=== PATIENT | male | born 1940 | race Caucasian/White ===

== ENCOUNTER → 2017-04-01 | Outpatient (CLI) | payer MEDICARE, OTHER ==
[~2017-04-01] MED LIST: ASPI325 PO; CALCAVITDA PO; HYDR1TAB94 PO; IBUP400 PO; LISHYD1012 PO; MULVITMIND PO; OMEPRAZOLE MAGN20 MG PO; SIMV10 PO
== END | disposition home or self-care (01) ==
LOC: PLD 11:13 → LAB SHORT 11:13
DX: C44.722 Squamous cell carcinoma of skin of right lower limb, including hip (principal)
CPT/HCPCS: 88305

== ENCOUNTER → 2017-04-26 | Outpatient (CLI) | payer MEDICARE, OTHER | LOC: PLD 13:30 → LAB SHORT 13:30 | DX: C44.722 Squamous cell carcinoma of skin of right lower limb, including hip (principal) | CPT/HCPCS: 88305 ==

== ENCOUNTER → 2018-02-22 | Outpatient (CLI) | payer MEDICARE, OTHER | END | disposition home or self-care (01) | LOC: PLD 10:13 → LAB SHORT 10:13 | DX: C44.320 Squamous cell carcinoma of skin of unspecified parts of face (principal) | CPT/HCPCS: 88305 ==

== ENCOUNTER → 2018-03-29 | Outpatient (CLI) | payer MEDICARE, OTHER | END | disposition home or self-care (01) | LOC: PLD 08:54 → LAB SHORT 08:54 | DX: C44.329 Squamous cell carcinoma of skin of other parts of face (principal) | CPT/HCPCS: 88305 ==

== ENCOUNTER → 2018-04-13 | Outpatient (CLI) | payer MEDICARE, OTHER | END | disposition home or self-care (01) | LOC: LAB SHORT 08:36 → PLD 08:36 | DX: C44.320 Squamous cell carcinoma of skin of unspecified parts of face (principal) | CPT/HCPCS: 88305 ==

== ENCOUNTER → 2018-08-23 | Outpatient (CLI) | payer MEDICARE, OTHER | END | disposition home or self-care (01) | LOC: PLD 15:12 → LAB SHORT 15:12 | DX: D48.5 Neoplasm of uncertain behavior of skin (principal) | CPT/HCPCS: 88305 ==

== ENCOUNTER → 2018-10-18 | Outpatient (CLI) | payer MEDICARE, OTHER | END | disposition home or self-care (01) | LOC: LAB SHORT 07:42 → PLD 07:42 | DX: C44.222 Squamous cell carcinoma of skin of right ear and external auricular canal (principal) | CPT/HCPCS: 88305 ==

== ENCOUNTER → 2018-10-27 | Outpatient (CLI) | payer MEDICARE, OTHER | END | disposition home or self-care (01) | LOC: LAB SHORT 09:17 → PLD 09:17 | DX: C44.222 Squamous cell carcinoma of skin of right ear and external auricular canal (principal) | CPT/HCPCS: 88305 ==

== ENCOUNTER → 2019-03-21 | Outpatient (CLI) | payer MEDICARE, OTHER | END | disposition home or self-care (01) | LOC: PLD 08:39 → LAB SHORT 08:39 | DX: D04.61 Carcinoma in situ of skin of right upper limb, including shoulder (principal) | CPT/HCPCS: 88305 ==

== ENCOUNTER → 2019-10-11 | Outpatient (CLI) | payer MEDICARE, OTHER | END | disposition home or self-care (01) | LOC: PLD 15:00 → LAB SHORT 15:00 | DX: L57.0 Actinic keratosis (principal) | CPT/HCPCS: 88305 ==

== ENCOUNTER → 2020-05-01 | Outpatient (CLI) | payer MEDICARE, OTHER | END | disposition home or self-care (01) | LOC: PLD 15:19 → LAB SHORT 15:19 | DX: C44.41 Basal cell carcinoma of skin of scalp and neck (principal) | CPT/HCPCS: 88305 ==

== ENCOUNTER → 2021-06-19 | Outpatient (CLI) | payer MEDICARE, OTHER | END | disposition home or self-care (01) | LOC: PLD 07:18 → LAB SHORT 07:18 | DX: C44.719 Basal cell carcinoma of skin of left lower limb, including hip (principal) | CPT/HCPCS: 88305 ==

== ENCOUNTER → 2021-12-03 | Outpatient (CLI) | payer MEDICARE, OTHER | END | disposition home or self-care (01) | LOC: LAB SHORT 15:12 → PLD 15:12 | DX: C44.319 Basal cell carcinoma of skin of other parts of face (principal) | CPT/HCPCS: 88305 ==

== ENCOUNTER → 2022-09-23 | Outpatient (CLI) | payer MEDICARE, OTHER | LOC: LAB 15:45 → PLD 15:45 → LAB SHORT 15:45 | DX: D48.5 Neoplasm of uncertain behavior of skin (principal) | CPT/HCPCS: 88305 ==

== ENCOUNTER 2023-03-23 15:52 | Observation (INO) | payer MEDICARE, OTHER ==
[~2023-03-23] VITALS: Ht 177.8 cm; Wt 63.0 kg
[~2023-03-23 15:52] MED LIST changes: +Hair, Skin & N1 EACH PO; -LISHYD1012 PO; +Lisinopril-Hct1 EAC4 PO; -MULVITMIND PO; -SIMV10 PO; +Zocor20 MG PO
[2023-03-23] MEDS ORDERED: DONE5 PO (17:38)
[2023-03-23] MEDS ORDERED: Vitamin D1000 UNI1 PO (17:39)
[2023-03-23] MEDS ORDERED: OLANZapine ODT 5 MG Tab PO ONE (22:55)
[2023-03-24] MEDS ORDERED: Ondansetron HCl 2 MG / ML 2ML Vial IV PRN (00:35)
[2023-03-24] MEDS ORDERED: FLU VACC QS2023-24(6MOS UP)/PF 60 MCG/0.5 ML SYRINGE IM ONE (00:35)
[2023-03-24] MEDS ORDERED: Acetaminophen 325 MG TABLET PO PRN (00:35)
[2023-03-24] MEDS ORDERED: Melatonin 3 MG Tab PO ONE (03:30)
[2023-03-24] MEDS ORDERED: QUEtiapine Fumarate 25 MG Tab PO ONE (03:30)
[2023-03-24 05:47] LABS: Albumin, Blood 3.3 g/dL (3.4-5.0); BASOPHILS ABSOLUTE AUTO 0.07 K/mm3 (0.00-0.23); BASOPHILS PERCENT AUTO 1 % (0-2); Bilirubin, Total 0.8 mg/dL (0.1-1.0); Bun/Creatinine Ratio 18.6 (12.0-20.0); Calcium, Blood 8.9 mg/dL (8.5-10.1); Creatinine, Blood 0.75 mg/dL (0.60-1.20); EOSINOPHILS ABSOLUTE AUTO 0.26 K/mm3 (0.00-0.68); EOSINOPHILS PERCENT AUTO 5 % (0-6); Globulin, Blood 3.3 g/dL (2.2-4.0); Hematocrit 42.2 % (37.0-53.0); Hemoglobin 14.7 g/dL (13.5-17.5); IMMATURE GRAN ABSOLUTE AUTO 0.04 K/mm3 (0.00-0.10); IMMATURE GRAN PERCENT AUTO 1 % (0-1); LYMPHOCYTES ABSOLUTE AUTO 0.98 K/mm3 (0.84-5.20); LYMPHOCYTES PERCENT AUTO 17 % (21-46); MONOCYTES ABSOLUTE AUTO 0.74 K/mm3 (0.16-1.47); MONOCYTES PERCENT AUTO 13 % (4-13); Mean Corpuscular HGB 31.3 pg (26.0-34.0); Mean Corpuscular HGB Conc 34.8 g/dL (31.5-36.5); Mean Corpuscular Volume 90 fL (80-100); Mean Platelet Volume 11.6 fL (9.1-12.4); NEUTROPHILS ABSOLUTE AUTO 3.65 K/mm3 (1.96-9.15); NEUTROPHILS PERCENT AUTO 64 % (41-73); Platelet Count 166 K/mm3 (150-400); Potassium, Blood 3.7 mmol/L (3.5-5.5); RDW Coefficient Variation 14.2 % (11.7-14.2); RDW Standard Deviation 46.8 fL (35.1-46.3); Total Protein, Blood 6.6 g/dL (6.4-8.2); White Blood Cell Count 5.74 K/mm3 (4.00-11.30)
[2023-03-24 05:48] LABS: Source, Urine Clean Catch
[2023-03-24 05:55] LABS: Bilirubin, Urine Neg (Neg); Blood, Urine Neg (Neg); Glucose Qualitative, Urine Neg (Neg); Ketones, Urine Neg (Neg); Leukocyte Esterase, Urine Neg (Neg); Nitrite, Urine Neg (Neg); Protein, Urine Neg (Neg); Specific Gravity, Urine 1.005 (1.003-1.022); Urobilinogen, Urine NORM (Normal)
[2023-03-24 06:04] LABS: Appearance, Urine Clear (Clear); Color, Urine Yellow (P-Yellow)
[2023-03-24] MEDS ORDERED: Heparin Sodium,Porcine 5,000 UNIT/0.5 ML SDV SC SCH (09:00)
[2023-03-24] MEDS ORDERED: HYDCHL25 PO (17:33)
[2023-03-24 19:58] VITALS: BP 124/80
[2023-03-24] MEDS ORDERED: QUEtiapine Fumarate 25 MG Tab PO SCH (21:00)
[2023-03-24] MEDS ORDERED: Melatonin 3 MG Tab PO SCH (21:00)
[2023-03-25 02:50] VITALS: BP 126/87
--- NOTE | 2023-03-25 03:50 | NUR ---
SHIFT SUMMERY. START OF SHIFT PT SEEMING SOME WHAT COMBATTIVE. PT REACHING OVER AND PULLING ON STRAPS FOR GÓMEZ VEST. STRAPS AJUSTED. A WHILE LATTER PT ABLE TO PULL OFF VEST. PT NOT FALLOWING DIRECTIONS AND NOT STEADY ON FEET. SOFT WRIST RESTRAINS APPLYED. PT TOOK HIS MEDS. PT REFUSED WANTING ANY SNACKS. AND SOON FELL ASLEEP IN BED , BED ALARM ALSO ON. PT HAS GOOD CIRCULATIION TO WRISTS AND ARMS. PT SEEMS COMFORTABLE.
[2023-03-25 07:46] VITALS: BP 141/87
[2023-03-25] MEDS ORDERED: ASPI81CH PO (08:27)
[2023-03-25] MEDS ORDERED: Atorvastatin 40 MG Tab PO SCH (09:00)
[2023-03-25] MEDS ORDERED: Aspirin 81 MG Chew PO SCH (09:00)
--- NOTE | 2023-03-25 11:06 | NUR ---
PATIENT D/C'D TO HOME WITH . DC INSTRUCTIONS AND EDUCATION DISCUSSED WITH PATIENT AND COPY PROVIDED. RX MEDICATIONS FAXED TO [facility]. PATIENT DENIES ANY FURTHER QUESTIONS OR CONCERNS.
== END 2023-03-25 09:46 | disposition home or self-care (01) ==
LOC: ER 15:52 → ERHOLD 15:53 → ER 03-24 00:49 → MEDS 03-24 00:49 → ERHOLD 03-24 00:49 → MEDS 03-24 16:30
PROVIDERS: Family Medicine; ADMIT Student in an Organized Health Care Education/Training Program
DX: I63.9 Cerebral infarction, unspecified (principal); G93.89 Other specified disorders of brain; R79.89 Other specified abnormal findings of blood chemistry; F03.90 Unspecified dementia, unspecified severity, without behavioral disturbance, psychotic disturbance, mood disturbance, and anxiety; I10 Essential (primary) hypertension; E78.00 Pure hypercholesterolemia, unspecified; K21.9 Gastro-esophageal reflux disease without esophagitis; Z79.899 Other long term (current) drug therapy; Z87.891 Personal history of nicotine dependence; Z86.73 Personal history of transient ischemic attack (TIA), and cerebral infarction without residual deficits
CPT/HCPCS: 70551; 71045; 80053; 81003; 83880; 84484; 85025; 92610; 93005; 93010; 94762; 96372; 99285-25; A9270; G0378; J1644

== ENCOUNTER 2024-05-14 16:59 | Emergency (ER) | payer MEDICARE, OTHER ==
[~2024-05-14] VITALS: Ht 177.8 cm; Wt 68.0 kg
[~2024-05-14 16:59] MED LIST changes: +ASPI81CH PO; +DONE5 PO; +HYDCHL25 PO; +Vitamin D1000 UNI1 PO
[2024-05-14 17:16] VITALS: BP 136/91
[2024-05-14] MEDS ORDERED: Oxymetazoline 0.05% Nasal Relief Spray 15mL BTL ONE (17:45)
== END 2024-05-14 18:37 | disposition home or self-care (01) ==
LOC: ER 16:59
DX: R04.0 Epistaxis (principal); I10 Essential (primary) hypertension; K21.9 Gastro-esophageal reflux disease without esophagitis; Z79.899 Other long term (current) drug therapy; Z79.82 Long term (current) use of aspirin; Z79.891 Long term (current) use of opiate analgesic
CPT/HCPCS: 99283; A9270

== ENCOUNTER 2024-06-07 14:06 | Inpatient (IN) | payer MEDICARE, OTHER ==
[~2024-06-07] VITALS: Ht 188 cm; Wt 68.4 kg
[2024-06-07 14:47] LABS: BASOPHILS ABSOLUTE AUTO 0.07 K/mm3 (0.00-0.23); BASOPHILS PERCENT AUTO 1 % (0-2); EOSINOPHILS ABSOLUTE AUTO 0.05 K/mm3 (0.00-0.68); EOSINOPHILS PERCENT AUTO 1 % (0-6); Hemoglobin 15.4 g/dL (13.5-17.5); IMMATURE GRAN ABSOLUTE AUTO 0.08 K/mm3 (0.00-0.10); IMMATURE GRAN PERCENT AUTO 1 % (0-1); LYMPHOCYTES ABSOLUTE AUTO 2.57 K/mm3 (0.84-5.20); LYMPHOCYTES PERCENT AUTO 39 % (21-46); MONOCYTES ABSOLUTE AUTO 0.48 K/mm3 (0.16-1.47); MONOCYTES PERCENT AUTO 7 % (4-13); Mean Corpuscular HGB 30.6 pg (26.0-34.0); Mean Corpuscular HGB Conc 33.5 g/dL (31.5-36.5); Mean Corpuscular Volume 92 fL (80-100); Mean Platelet Volume 11.3 fL (9.1-12.4); NEUTROPHILS ABSOLUTE AUTO 3.41 K/mm3 (1.96-9.15); NEUTROPHILS PERCENT AUTO 51 % (41-73); Platelet Count 165 K/mm3 (150-400); RDW Coefficient Variation 14.8 % (11.7-14.2); RDW Standard Deviation 49.9 fL (35.1-46.3); Red Blood Cell Count 5.03 M/mm3 (4.30-5.90); White Blood Cell Count 6.66 K/mm3 (4.00-11.30)
[2024-06-07 14:53] LABS: International Normalized Ratio 1.11; Prothrombin Time Results 11.8 Sec (9.7-11.5)
--- NOTE | 2024-06-07 14:55 | NUR ---
"Spiritual Care | Trauma Team Response Pt. is being treated when spouse arrives. Supported spouse as the doctor asked questions. Facilitated a lengthy life review and built rapport with spouse. Spouse displayed evidence that the pts. (lack of) response is new. Spouse verbalized that at Pts. baseline confusion he would still respond and recognize her. Facilitated a life review and considered matters of kathi and belief. When Pt. was stablized in the room the spouse excused herself for home and verbalized gratitude forthe spiritual care support. Spouse gave her phone number to attneding nurse."
[2024-06-07 15:03] LABS: Alanine Aminotransfer (ALT/SGP 32 U/L (12-78); Albumin, Blood 3.9 g/dL (3.4-5.0); Albumin/Globulin Ratio 1.1 (0.8-1.8); Alk Phos 100 U/L (50-136); Anion Gap 16 mmol/L (3-11); Aspartate Aminotrans (AST/SGOT 33 U/L (12-37); Bilirubin, Total 0.9 mg/dL (0.1-1.0); Blood Urea Nitrogen 21 mg/dL (8-24); Bun/Creatinine Ratio 26.4 (12.0-20.0); CO2, Blood 19 mmol/L (21-32); Calcium, Blood 9.2 mg/dL (8.5-10.1); Chloride, Blood 102 mmol/L (98-108); Creatinine, Blood 0.79 mg/dL (0.60-1.20); Ethanol (Alcohol), Blood, Med <3 mg/dL; Globulin, Blood 3.5 g/dL (2.2-4.0); Glomerular Filtration Rate 89 (60-); Glucose, Blood 126 mg/dL (70-99); Potassium, Blood 4.3 mmol/L (3.5-5.5); Sodium, Blood 133 mmol/L (136-145); Total Protein, Blood 7.4 g/dL (6.4-8.2)
[2024-06-07 16:20] LABS: Source, Urine Clean Catch
[2024-06-07 16:26] LABS: Appearance, Urine Clear (Clear); Bilirubin, Urine Neg (Neg); Blood, Urine 3+ (Neg); Color, Urine Yellow (P-Yellow); Glucose Qualitative, Urine Neg (Neg); Ketones, Urine Neg (Neg); Leukocyte Esterase, Urine Neg (Neg); Nitrite, Urine Neg (Neg); Protein, Urine 2+ (Neg); Specific Gravity, Urine 1.025 (1.003-1.022); Urobilinogen, Urine NORM (Normal)
[2024-06-07 16:53] LABS: U Amphetamine Screen Not Detected; U Barbituate Screen Not Detected; U Benzodiazapine Screen DETECTED; U Buprenorphine Screen Not Detected; U Cannabinoids Screen Not Detected; U Cocaine Screen Not Detected; U Methadone Screen Not Detected; U Methamphetamine Screen Not Detected; U Opiates Screen Not Detected; U Oxycodone Screen Not Detected; U Phencyclidine Screen Not Detected
[2024-06-07 16:54] LABS: Bacteria Rare /hpf; Squamous Epithelial Cells Not Seen /hpf (Few); White Blood Cells, Urine 0-2 /hpf (0-5)
[2024-06-07] MEDS ORDERED: LORazepam 2 MG/ML 1ML Injection IV PRN (20:25)
[2024-06-07] MEDS ORDERED: Ondansetron HCl 2 MG / ML 2ML Vial IV PRN (20:30)
[2024-06-07] MEDS ORDERED: Lactated Ringer's 1,000 ML IV SCH (20:30)
[2024-06-07 20:56] LABS: Magnesium, Blood 1.9 mg/dL (1.6-2.4); Thyroid Stimulating Hormone 7.26 uIU/mL (0.360-4.800)
[2024-06-07] MEDS ORDERED: Lactated Ringer's 1,000 ML IV ONE ×3 (21:00→22:02)
[2024-06-07 21:12] LABS: Base Excess Venous -9.7 mmol/L; Bicarbonate Venous 17.2 mmol/L (24.0-30.0); PCO2 Venous 30.1 mmHg (38-42); pH Blood Venous 7.34 (7.34-7.37)
[2024-06-07] MEDS ORDERED: levETIRAcetam 500 MG in NS 100 ML IV SCH (22:00)
[2024-06-07 23:29] VITALS: BP 125/90; BP 125/900
--- NOTE | 2024-06-07 23:51 | NUR ---
TRANSFER NOTE: PT ARRIVED FROM ED, AOX1 RESPONDS TO VERBAL STIMULI AND TO HIS NAME BUT IS UNABLE TO ANSWER ANY QUESTION. PT SOLMULENT AND SLUGGISH. SMALL MOVEMENTS BUT IS DOES NOT SEEM AGITATED. BED ALARM IN PLACE. PT ARRIVED WITH A TRUONG IN PLACE, HAVING GOOD DRAINAGE. SEIZURE PRECAUTIONS IN PLACE. PT IS IN BED RESTING, BED IN LOWEST POSITION, BED ALARM ON, CALL LIGHT IN REACH. CONTINUING CARE.
--- NOTE | 2024-06-08 04:32 | NUR ---
SHIFT SUMMARY: PT AOX1-2 IS SOLMNOLENT. RESPONDS TO VERBAL STIMULI AND NAME. ABLE TO ANSWER SOME YES OR NO QUESTIONS, DIFFICULT TO TELL IF HE IS ANSWERING APPROPRIATELY OR JUST RESPONDING TO WORDS. PT ABLE TO OCCASIONALLY FOLLOW COMANDS. GOT MORE AND MORE VISUALLY AWAKE BUT WOULD DOSE OFF AGAIN. PULLS AT TELE LEADS. CAME UP FROM ED WITH A TRUONG. PT TOLERATING MEDICATIONS WELL. NPO, TO BE SEEN BY SURGERY IN THE MORNING DUE TO COMING IN A TRAUMA. PT HAS NOT ATTEMPTED TO GET OUT OF BED BUT WILL THROW BLANKETS OFF. MILD RETRACTIONS ON BREATHING BUT SATS ARE OKAY. PT IN BED SLEEPING, BED IN LOWEST POSITION, CALL LIGHT IN REACH. CONTINUING CARE.
[2024-06-08 04:56] VITALS: BP 134/91
[2024-06-08] MEDS ORDERED: OLANZapine 10 MG Vial IM ONE (05:00)
--- NOTE | 2024-06-08 05:27 | NUR ---
NURSING NOTE: PT AWAKE AND DISORIENTED, ABLE TO ANSWER BASIC QUESTIONS WITH VARYING ACCURACY. PULLING AT TRUONG, LINES AND TELE LEADS. PT AGITATED AND TRYING TO GET OUT OF BED. PROVIDER NOTIFIED, ZYPREXA ORDERED AND ADMINISTERED. CONTINUING CARE.
[2024-06-08 06:03] LABS: BASOPHILS ABSOLUTE AUTO 0.06 K/mm3 (0.00-0.23); BASOPHILS PERCENT AUTO 1 % (0-2); EOSINOPHILS ABSOLUTE AUTO 0.02 K/mm3 (0.00-0.68); EOSINOPHILS PERCENT AUTO 0 % (0-6); Hematocrit 45.5 % (37.0-53.0); Hemoglobin 15.4 g/dL (13.5-17.5); IMMATURE GRAN ABSOLUTE AUTO 0.03 K/mm3 (0.00-0.10); IMMATURE GRAN PERCENT AUTO 0 % (0-1); LYMPHOCYTES ABSOLUTE AUTO 1.29 K/mm3 (0.84-5.20); LYMPHOCYTES PERCENT AUTO 18 % (21-46); MONOCYTES ABSOLUTE AUTO 0.66 K/mm3 (0.16-1.47); MONOCYTES PERCENT AUTO 9 % (4-13); Mean Corpuscular HGB 30.9 pg (26.0-34.0); Mean Corpuscular HGB Conc 33.8 g/dL (31.5-36.5); Mean Corpuscular Volume 91 fL (80-100); Mean Platelet Volume 11.8 fL (9.1-12.4); NEUTROPHILS ABSOLUTE AUTO 5.04 K/mm3 (1.96-9.15); NEUTROPHILS PERCENT AUTO 71 % (41-73); Platelet Count 136 K/mm3 (150-400); RDW Coefficient Variation 14.9 % (11.7-14.2); RDW Standard Deviation 49.2 fL (35.1-46.3); Red Blood Cell Count 4.98 M/mm3 (4.30-5.90)
[2024-06-08 06:29] LABS: Free Thyroxine 1.24 ng/dL (0.70-1.60)
[2024-06-08 06:31] LABS: Albumin, Blood 3.2 g/dL (3.4-5.0); Bilirubin, Total 0.9 mg/dL (0.1-1.0); Bun/Creatinine Ratio 23.7 (12.0-20.0); Calcium, Blood 8.8 mg/dL (8.5-10.1); Creatinine, Blood 0.63 mg/dL (0.60-1.20); Globulin, Blood 3.2 g/dL (2.2-4.0); Potassium, Blood 3.7 mmol/L (3.5-5.5); Total Protein, Blood 6.4 g/dL (6.4-8.2); Triiodothyronine, Free 2.61 pg/mL (2.18-3.98)
[2024-06-08 08:01] VITALS: BP 133/88
[2024-06-08] MEDS ORDERED: LORazepam 2 MG/ML 1ML Injection IV PRN (08:05)
[2024-06-08] MEDS ORDERED: Aspirin 81 MG Chew PO SCH (09:00)
[2024-06-08] MEDS ORDERED: Enoxaparin 40 MG/0.4 ML SYR SC SCH (09:00)
[2024-06-08] MEDS ORDERED: Citalopram Hydrobromide 10 MG TAB PO SCH (12:00)
--- NOTE | 2024-06-08 13:53 | NUR ---
Spiritual Care Visit. Pt. is awake in bed when I initiate my visit. While the Pt. was able to say a few words, the Pt. displayed evidence of significant confusion. Encouragement was attempted, but it was not evidenct that the Pt. understood what it meant. Since I had been with the Pt. and his Spouse in the ER the day before, I had been told by his spouse of the Pts. baseline dementia, but how it took a significant downward trajectory in the past two days. Prayed with the Pt. WIll remain available to the Pt., family, and care team.
[2024-06-08] MEDS ORDERED: Acetaminophen 650 MG Supp PR PRN (15:40)
--- NOTE | 2024-06-08 19:09 | NUR ---
SHIFT SUMMARY PT REMAINS DISORIENTED, ANSWERS TO VERBAL STIMULI ONLY, CAN STATE YES/NO. DOES NOT FOLLOW DIRECTION. BEDREST. INDWELLING TRUONG CATHETER PATENT AND DRAINING CLEAR YELLOW URINE. FEVER OF 100.7 TODAY, 650 MG TYLENOL SUPP ADMINISTERED AND BROUGHT FEVER DOWN TO 99.1 - PROVIDER AWARE, PT APPEARED MORE COMFORTABLE POST TYLENOL ADMINISTRATION. RESPIRATORY SWAB COLLECTED AND SENT TO LAB. MRI COMPLETED TODAY. EEG TO BE CALLED IN TOMORROW TO BE COMPLETED. PT IS RESTLESS AND FIDGITS/PULLS ON LINES AT TIMES. PT MOST COMFORTABLE LYING FLAT. PT CURRENTLY RESTING IN HOSPITAL BED WITH BED IN LOWEST POSITION AND BED ALARM ON. DOES NOT USE CALL LIGHT APPROPRIATELY.
[2024-06-08 19:56] LABS: Influenza A, PCR NEGATIVE (NEGATIVE); Influenza B, PCR NEGATIVE (NEGATIVE); Resp Syncytial Virus, PCR NEGATIVE (NEGATIVE); SARS-Cov-2 (COVID-19) PCR, MMC NEGATIVE (NEGATIVE)
[2024-06-08 20:49] VITALS: BP 127/99
[2024-06-09 00:17] VITALS: BP 138/97
[2024-06-09 04:36] VITALS: BP 145/99
--- NOTE | 2024-06-09 06:17 | NUR ---
SHIFT SUMMARY: PT AOX1, UNABLE TO FOLLOW COMMANDS CAN ANSWER SOME YES OR NO QUESTIONS. VERY FLAT MOOD AND AFFECT. NON COOPERATIVE IN CARE. SOMETIMES REDIRECTABLE. VERY TIRED SLEPT THROUGH MOST OF THE NIGHT WITHOUT INCIDENT, TOLERATING MEDICATIONS WELL. PT SCHEDULED FOR EEG TODAY. PT HAS TRUONG IN PLACE WITH GOOD OUTPUT. PT IN BED SLEEPING, BED IN LOWEST POSITION, CALL LIGHT IN REACH. CONTINUING CARE.
[2024-06-09 06:21] LABS: BASOPHILS ABSOLUTE AUTO 0.05 K/mm3 (0.00-0.23); BASOPHILS PERCENT AUTO 1 % (0-2); EOSINOPHILS ABSOLUTE AUTO 0.01 K/mm3 (0.00-0.68); EOSINOPHILS PERCENT AUTO 0 % (0-6); Hematocrit 46.8 % (37.0-53.0); Hemoglobin 15.5 g/dL (13.5-17.5); IMMATURE GRAN ABSOLUTE AUTO 0.06 K/mm3 (0.00-0.10); IMMATURE GRAN PERCENT AUTO 1 % (0-1); LYMPHOCYTES ABSOLUTE AUTO 0.71 K/mm3 (0.84-5.20); LYMPHOCYTES PERCENT AUTO 8 % (21-46); MONOCYTES PERCENT AUTO 9 % (4-13); Mean Corpuscular HGB 30.6 pg (26.0-34.0); Mean Corpuscular HGB Conc 33.1 g/dL (31.5-36.5); Mean Corpuscular Volume 93 fL (80-100); Mean Platelet Volume 12.1 fL (9.1-12.4); NEUTROPHILS ABSOLUTE AUTO 6.97 K/mm3 (1.96-9.15); NEUTROPHILS PERCENT AUTO 81 % (41-73); Platelet Count 153 K/mm3 (150-400); RDW Coefficient Variation 15.2 % (11.7-14.2); RDW Standard Deviation 51.9 fL (35.1-46.3); Red Blood Cell Count 5.06 M/mm3 (4.30-5.90)
[2024-06-09 06:49] LABS: Albumin, Blood 2.7 g/dL (3.4-5.0); Albumin/Globulin Ratio 0.8 (0.8-1.8); Bilirubin, Total 1.2 mg/dL (0.1-1.0); Bun/Creatinine Ratio 20.2 (12.0-20.0); Calcium, Blood 8.4 mg/dL (8.5-10.1); Creatinine, Blood 0.65 mg/dL (0.60-1.20); Globulin, Blood 3.4 g/dL (2.2-4.0); Potassium, Blood 3.9 mmol/L (3.5-5.5); Total Protein, Blood 6.1 g/dL (6.4-8.2)
[2024-06-09 07:41] VITALS: BP 131/98
[2024-06-09] MEDS ORDERED: CefTRIAXone Sodium 1,000 MG in NS 100 ML IV SCH (09:00)
[2024-06-09] MEDS ORDERED: Doxycycline Hyclate 100 MG TAB PO SCH (09:00)
[2024-06-09] MEDS ORDERED: NS 250 ML IV PRN (09:15)
[2024-06-09 11:40] VITALS: BP 132/79
--- NOTE | 2024-06-09 14:57 | NUR ---
ROUNDED ON PATIENT. HE IS IN BED, SLEEPING OFF AND ON. HE IS CONFUSED AND DIFFICULT TO HOLD A CONVERSATION. CALLED [facility] AND LEFT MESSAGE. DISCUSSED WITH BENCH BORING MACHINE OPERATOR AND BEDSIDE RN.
[2024-06-09] MEDS ORDERED: OLANZapine ODT 5 MG Tab MM PRN (15:30)
[2024-06-09] MEDS ORDERED: OLANZapine 10 MG Vial IM PRN (15:30)
[2024-06-09] MEDS ORDERED: Acetaminophen 325 MG TABLET PO PRN (17:00)
[2024-06-09] MEDS ORDERED: QUEtiapine Fumarate 25 MG Tab PO PRN (17:05)
--- NOTE | 2024-06-09 17:37 | NUR ---
"Spiritual Care Check in | Staff support Pt. is confused at baseline and displays evidence of continuing to want to get out of bed. Provided attending nurse and APPIAN BPM DEVELOPER with some background on the Pt. Prayed for the Pt. and Spouse after I departed."
[2024-06-09 17:47] VITALS: BP 108/83
--- NOTE | 2024-06-09 17:57 | NUR ---
SHIFT SUMMARY: PATIENT ALERT AND ORIENTED TO NAME ONLY, CONFUSED. PATIENT HAS HAD NO SEIZURE ACTIVITY NOTED THIS SHIFT. AT AROUND 1500'S PATIENT BECOMES ANXIOUS, AGITATED, PULLING LINES-IV AND TRIED TO GET OOB ON MULTIPLE OCCASIONS. NOTIFIED DR. CALLAHAN, ORDERED ZYPREXA 5 MG IM AND DC'D TELE. PATIENT MEDICATED c 5 MG IM ZYPREXA FOR AGITATION, ONLY LAST 15 MINS AND STARTED GETTING AGITATED AND ATTEMPTED TO GET OOB. NOTIFIED DR. CALLAHAN, RECEIVED ORDER SEROQUEL 25 MG PO EVERY 6 HRS FOR AGITATION. PATIENT MEDICATED c 25 MG SEROQUEL FOR AGITATION. PATIENT IS CALM, BUT APPEARS TO HAVE VISUAL HALLUCINATION EVIDENCE c HIS BILAT HAND UP AND TRIED TO REACH OUT SOMETHING. EEG WAS DONE TODAY. PATIENT ON PUREED DIET-1:1 FEEDER c THICKENED LIQUIDS, MEDS CRUSHED AND MIXED IN APPLE SAUCE. PATIENT HAS PIV TO L FOREARM, INFUSING NS AT 125 MLS/HR. VITAL SIGNS REVIEWED. BED ALARM ON FOR SAFETY. CALL LIGHT IN REACH.
[2024-06-09 21:41] VITALS: BP 129/86
[2024-06-10 04:37] VITALS: BP 148/106
--- NOTE | 2024-06-10 05:56 | NUR ---
SHIFT SUMMARY NOC PT A/O TO SELF. DURING CHANGE OF SHIFT REPORT PT WAS PULLING AT LINES/TUBES, WHICH DAY RN REPORTED HAS BEEN ONGOING MOST OF LATE AFTERNOON. ORDER FOR MITTS OBTAINED BY SHADE CLOTH FINISHER RESIDENT. PT HAS TRUONG IN PLACE DRAINING YELLOW URINE TO GRAVITY. LR INFUSING @ 125 ML/HR STOPPED WHEN PT SPO2 DROPPED INTO LOW 80'S WHEN PT WAS LYING FLAT AND LUNG SOUNDS SLIGHTLY WET, 2L/NC APPLIED AND HOB AND SPO2 >92%. RESIDENT NOTIFIED AND ASSESSED PT AND NO FURTHER ORDERS BESIDES CONTINUE TO MONITOR PT. PT HAD INC BM. PT CURRENTLY RESTING WITH BED ALARM ON, BED IN LOWEST POSITION, AND CALL LIGHT WITHIN REACH.
--- NOTE | 2024-06-10 06:18 | NUR ---
DURING AM VS PT FOUND TO HAVE SPO2 IN 80'S ON RA AND SOUNDED WET WHEN LYING FLAT. HOB RAISED AND O2 2L/NC PLACED AND SPO2 >92% AND IVF STOPPED. RESIDENT NOTIFIED AND CAME TO ASSESS PT. NO NEW ORDERS GIVEN AND WILL CONTINUE TO MONITOR FOR CHANGE IN PT CONDITION.
[2024-06-10 08:00] VITALS: BP 110/87
[2024-06-10 09:36] LABS: BASOPHILS ABSOLUTE AUTO 0.02 K/mm3 (0.00-0.23); BASOPHILS PERCENT AUTO 0 % (0-2); EOSINOPHILS ABSOLUTE AUTO 0.02 K/mm3 (0.00-0.68); EOSINOPHILS PERCENT AUTO 0 % (0-6); Hematocrit 44.5 % (37.0-53.0); Hemoglobin 15.5 g/dL (13.5-17.5); IMMATURE GRAN ABSOLUTE AUTO 0.04 K/mm3 (0.00-0.10); IMMATURE GRAN PERCENT AUTO 1 % (0-1); LYMPHOCYTES ABSOLUTE AUTO 1.05 K/mm3 (0.84-5.20); LYMPHOCYTES PERCENT AUTO 18 % (21-46); MONOCYTES ABSOLUTE AUTO 0.57 K/mm3 (0.16-1.47); MONOCYTES PERCENT AUTO 10 % (4-13); Mean Corpuscular HGB 31.4 pg (26.0-34.0); Mean Corpuscular HGB Conc 34.8 g/dL (31.5-36.5); Mean Corpuscular Volume 90 fL (80-100); Mean Platelet Volume 11.6 fL (9.1-12.4); NEUTROPHILS ABSOLUTE AUTO 4.13 K/mm3 (1.96-9.15); NEUTROPHILS PERCENT AUTO 71 % (41-73); Platelet Count 135 K/mm3 (150-400); RDW Coefficient Variation 14.9 % (11.7-14.2); Red Blood Cell Count 4.94 M/mm3 (4.30-5.90); White Blood Cell Count 5.83 K/mm3 (4.00-11.30)
[2024-06-10 10:12] LABS: Albumin, Blood 2.7 g/dL (3.4-5.0); Albumin/Globulin Ratio 0.8 (0.8-1.8); Bilirubin, Total 1.1 mg/dL (0.1-1.0); Bun/Creatinine Ratio 18.1 (12.0-20.0); Calcium, Blood 8.5 mg/dL (8.5-10.1); Creatinine, Blood 0.72 mg/dL (0.60-1.20); Globulin, Blood 3.4 g/dL (2.2-4.0); Potassium, Blood 3.8 mmol/L (3.5-5.5); Total Protein, Blood 6.1 g/dL (6.4-8.2)
--- NOTE | 2024-06-10 17:00 | NUR ---
SHIFT SUMMARY: PATIENT HAS HAD NO NEW CHANGES THIS SHIFT. PATIENT A/O TO SELF ONLY AND CONFUSED. PATIENT MEDICATED X1 FOR AGITATION AND X1 FOR GENERALIZED DISCOMFORT/PAIN PER EMAR c GOOD EFFECT. MITTENS RESTRAINTS TO BILAT HAND DC'D AT 1717, NO IV ACCESS PER ORDER. PATIENT HAS POOR APPETITE c 1:1 FEED ASSIST, TRUONG IN PLACED FOR ACUTE RETENTION, PATENT DRAINING YELLOW URINE TO GRAVITY, CATH CARE DONE, REPOSITIONED T/O SHIFT. VITAL SIGNS REVIEWED. BED ALARM ON FOR SAFETY. CALL LIGHT IN REACH.
[2024-06-10 20:16] VITALS: BP 107/77
[2024-06-11 04:44] VITALS: BP 143/91
--- NOTE | 2024-06-11 06:20 | NUR ---
SHIFT SUMMARY NOC PT A/O TO SELF. PLEASANTLY CONFUSED. VSS. PT GIVEN ZYPREXA PRN @ BEDTIME FOR AGITATION FOR PULLING AT TRUONG AND GETTING UP OOB UNSAFELY, TELEHEALTH DIRECTOR NOTIFIED AND CLINICAL SITTER PLACED. NEW ADMIT ARRIVED ON UNIT AND SITTER REASSIGNED TO THAT ROOM, AND PT BEGAN TO PULL AT TRUONG AND BILATERAL MITTS REINITIATED AFTER HOSPITALIST NOTIFIED OF PT UNSAFE BEHAVIOUR. ADDITIONAL DOSE OF SEROQUEL GIVEN AND PT FINALLY STOPPED PULLING AT TRUONG SO MITTS DC. PT STILL AWAITING PALLIATIVE CARE CONSULT FOR POSSIBLE HOSPICE PLACEMENT. PT CURRENTLY RESTING WITH BED ALARM ON, BED IN LOWEST POSITION, AND CALL LIGHT WITHIN REACH.
[2024-06-11] MEDS ORDERED: Ondansetron 4 MG SoluTab MM PRN (08:00)
[2024-06-11 08:14] VITALS: BP 107/78
--- NOTE | 2024-06-11 15:40 | NUR ---
Met with pt and his Renetta. Pt is alert, oriented to self. Does attempt to answer basic questions with "Yes" and "No". Renetta asks the patient a lot of questions that appear to be too complex for him, and he answers some of these with word salad. He does not appear to be in any physical distress. At 's request, sent H&P, face sheet etc to both [facility] and and [facility]. Terrance came to see him today, and I assisted with writing out a list of action items to work on in the morning. Renetta was tearful, states she is struggling with the changes she's seeing, and the idea of living separate from her . She also states she "knows it must be done," as his current care needs are higher than she is able to handle. Will continue to encourage and uplift Renetta, and continue visits with Adryan.
[2024-06-11 16:02] VITALS: BP 134/95
--- NOTE | 2024-06-11 17:36 | NUR ---
SHIFT SUMMARY: PATIENT HAS HAD NO NEW ACUTE CHANGES THIS SHIFT. PATIENT CONTINUES TO BE A/O TO NAME ONLY, ANXIOUS, CONFUSED AND EPISODE OF AGITATION ON/OFF T/O SHIFT. PATIENT HAS 1:1 SITTER FOR SAFETY. PATIENT MEDICATED c SEROQUEL FOR AGITATION PER EMAR c GOOD EFFECT. PATIENT HAS POOR APPETITE c 1:1 FEEDER, TRUONG IN PLACED FOR ACUTE RETENTION, PATENT DRAINING YELLOW URINE TO GRAVITY. VITAL SIGNS REVIEWED. BED ALARM ON FOR SAFETY. CALL LIGHT IN REACH.
[2024-06-11] MEDS ORDERED: QUEtiapine Fumarate 50 MG TAB PO SCH (18:00)
[2024-06-11 19:44] VITALS: BP 134/116
[2024-06-11 21:19] VITALS: BP 139/101
[2024-06-11] MEDS ORDERED: Lisinopril 10 MG Tab PO SCH (22:35)
[2024-06-11] MEDS ORDERED: HydroCHLOROthiazide 25 mg Tab PO SCH (22:37)
--- NOTE | 2024-06-12 05:19 | NUR ---
SHIFT SUMMARY NOC PT A/O TO SELF. PLEASANTLY CONFUSED AND HAS SITTER IN PLACE DUE TO ATTEMPTING OOB UNSAFE AND PULLING AT TRUONG CATHETER. NO ACUTE EVENTS TO REPORT PT TOOK SCHEDULED RX AND RECEIVED ONE PRN DOSE OF SEROQUEL FOR AGITATION. PT WAITING ON ADULT FOSTER CARE FACILITY PLACEMENT PER SHIFT CHANGE REPORT. PT CURRENTLY RESTING WITH BED IN LOWEST POSITION, AND CALL LIGHT WITHIN REACH.
[2024-06-12 05:24] VITALS: BP 126/97
[2024-06-12 07:46] VITALS: BP 126/86
--- NOTE | 2024-06-12 14:46 | NUR ---
Pt's apetite is poor, and he states he isn't hungry. Plan for discharge with hospice. Pt denies pain or other symptom. Pt's is looking at an adult foster [facility] today for placement.
[2024-06-12 15:27] VITALS: BP 101/86
[2024-06-12 15:32] VITALS: BP 116/80
--- NOTE | 2024-06-12 17:42 | NUR ---
SHIFT SUMMARY: PT A&O TO SELF. SITTER IN PLACE. PLAN FOR PT TO D/C ON HOSPICE HOPEFULLY TO [facility]. PALLIATE AND BIOPROCESS ENGINEER WORKING WITH ON D/C PLAN. CALL LIGHT IN REACH. BED IN LOWEST POSITION.
[2024-06-12 19:42] VITALS: BP 122/86
[2024-06-12] MEDS ORDERED: Atorvastatin 10 MG Tab PO SCH (21:00)
[2024-06-13 03:38] VITALS: BP 139/95
[2024-06-13 07:46] VITALS: BP 135/78
--- NOTE | 2024-06-13 15:07 | NUR ---
Spiritiual Care Visit. Pt. is awake in bed. Spouse is at bedside and welcomes my visit. Pt. is currently pleasant. Faciltated an update regarding the Pts. future care. Pt. displays evidence of confusion, and spouse verbalizes that his current state is much worse than before he came into the hospital. Prayed with the Pt. Spouse verbalized gratitude for the spiritual care visit.
[2024-06-13 15:16] VITALS: BP 143/106
--- NOTE | 2024-06-13 18:03 | NUR ---
ASSUMED CARE OF PT. PLEASENTLY CONFUSED PT THAT IS COOPERATIVE WITH CARE. STATES HE HAS NO PAIN NOR NEEDS TO USE THE BATHROOM , BUT CONSISTENTLY TRYING TO GET OUT OF BED. SITTER AT BEDSIDE TO ASSIST IN CARE. I ENC PT TO USE BSC PT AGREED BUT WAS A TOTAL WEIGHT TRANSFER. PT WAS UNABLE TO COORDINATE USING BSC AND WAS CHANGED AND TRANSFERED BACK TO BED.
[2024-06-13 19:23] VITALS: BP 119/89
[2024-06-14 03:46] VITALS: BP 106/80
[2024-06-14 07:44] VITALS: BP 121/90
[2024-06-14] MEDS ORDERED: Polyethylene Glycol 3350 17 gm PO PRN (08:45)
[2024-06-14] MEDS ORDERED: Docusate Sodium 100 MG Cap PO PRN (08:45)
[2024-06-14] MEDS ORDERED: Magnesium Hydroxide Conc 10 ML UDC PO PRN (08:45)
[2024-06-14 15:28] VITALS: BP 112/78
--- NOTE | 2024-06-14 17:35 | NUR ---
SHIFT SUMMARY PT A&O TO SELF ONLY AND CONFUSED, VSS, TOLERATING PO, AND DENIED PAIN. PT IMPULSIVE AND ATTEMPTED TO GET OOB UNSAFELY AND PULL AT TRUONG T/O SHIFT, 1:1 SITTER AT BEDSIDE TO REDIRECT PT. PT HAD NO BM THIS SHIFT, BOWEL CARE ORDERS RECEIVED THIS AM, AND MIRALAX GIVEN. SEROQUIL GIVEN SCHEDULED PER EMAR AND PRN. NO OTHER ACUTE CHANGES. CALL LIGHT WITHIN REACH AND 1:1 SITTER REMAINS AT BEDSIDE.
[2024-06-14 19:34] VITALS: BP 117/84
[2024-06-15 04:36] VITALS: BP 110/82
[2024-06-15 07:53] VITALS: BP 110/80
--- NOTE | 2024-06-15 09:00 | NUR ---
pt laying in bed awake, at bedside, a/o to self, follows commands with lots of direction, lungs are clear in [place], dim in bases, resp even and unlabored, no cough noted, on r/a, hrr, no edema noted, ppp faint, cap refill <3 sec, vs stable, afebrile, btx4, abd flat soft nontender, voids via arcos for retention, clear yellow urine, skin c/w/d/, maew, lithography contact worker = but weak, dpfe =, states he is an ambulator at baseline, sae, call light in reach. plan for discharge today.
[2024-06-15] MEDS ORDERED: CITALOPRAM HBR10 MG PO (10:54)
--- NOTE | 2024-06-15 10:59 | NUR ---
pt is being discharged to foster care, will be picked up at 1130 by transport, called Terrance at [facility] to give her an update. will leave arcos cath in place, at bedside, call light in reach.
--- NOTE | 2024-06-15 11:36 | NUR ---
pt has been picked up by transport, left via gurney, will follow. she has all belongings.
== END 2024-06-15 11:57 | disposition hospice, home (50) | DRG 100 ==
LOC: ER 14:06 → MEDS 14:07 → SURS 14:07 → MEDS 23:04
PROVIDERS: Internal Medicine; Nurse Practitioner Acute Care; Student in an Organized Health Care Education/Training Program; ADMIT Surgery
DX: G40.89 Other seizures (principal); J18.9 Pneumonia, unspecified organism; E87.20 Acidosis, unspecified; E87.1 Hypo-osmolality and hyponatremia; I48.92 Unspecified atrial flutter; F05 Delirium due to known physiological condition; F03.911 Unspecified dementia, unspecified severity, with agitation; J98.11 Atelectasis; Z66 Do not resuscitate; F03.90 Unspecified dementia, unspecified severity, without behavioral disturbance, psychotic disturbance, mood disturbance, and anxiety; E78.00 Pure hypercholesterolemia, unspecified; I10 Essential (primary) hypertension; K21.9 Gastro-esophageal reflux disease without esophagitis; Z96.642 Presence of left artificial hip joint; Z96.659 Presence of unspecified artificial knee joint; S09.90XA Unspecified injury of head, initial encounter; R55 Syncope and collapse; Z86.73 Personal history of transient ischemic attack (TIA), and cerebral infarction without residual deficits; Z87.891 Personal history of nicotine dependence; Z87.19 Personal history of other diseases of the digestive system; Z79.811 Long term (current) use of aromatase inhibitors; Z79.899 Other long term (current) drug therapy; Z79.82 Long term (current) use of aspirin; W19.XXXA Unspecified fall, initial encounter
CPT/HCPCS: 0241U; 31720; 36415; 51701; 70450; 71045; 72125; 72170; 80053; 80320; 81001; 82803; 83605; 83690; 83735; 84145; 84439; 84443; 84481; 85025; 85610; 86850; 86900; 86901; 92526; 92610; 93005; 93010; 94760; 95819; 96361; 96365; 96375; 99285-25; A9270; G0378; J0696; J1650; J1953; J2060; J7050; J7120